=== PATIENT | male | born 1995 | race Caucasian/White ===

== ENCOUNTER 2016-11-19 23:47 | Emergency (ER) | payer OTHER ==
[~2016-11-19] VITALS: Ht 180.3 cm; Wt 72.6 kg
[2016-11-20] MEDS ORDERED: IBUPROFEN600 MG ORAL (00:33)
[2016-11-20] MEDS ORDERED: PROMETH-CODEIN 65 ML PO (00:33)
[2016-11-20] MEDS ORDERED: AMOXICILLIN500 MG ORAL (00:33)
[2016-11-20 00:45] VITALS: BP 121/71
--- NOTE | 2016-11-20 02:12 | Emergency Room Report ---
History of Present Illness General Chief Complaint: Sore Throat Source: Patient Present Illness HPI 21YOM [employer] patient with 2 days sinus congestion, rhinorrhea, sore throat, cough Denies fever/chills, earache, chest pain, SOB, sick contacts, other medical problems Self medicating with Nyquill with mild improvement Allergies: Coded Allergies: No Known Allergies (Unverified , 11/20/16) Patient History Past Medical History: none Past Surgical History: none Pertinent Family History: none Social History: Denies: alcohol use, drug use, smoking Immunizations: UTD Reviewed Nursing Documentation: PMH: Agreed, PSxH: Agreed Nursing Documentation-PMH Past Medical History: No Stated History Review of Systems All Other Systems: negative except mentioned in HPI Physical Exam Vital Signs Date Time Temp Pulse Resp B/P Pulse Ox O2 Delivery O2 Flow Rate FiO2 11/20/16 00:04 97.9 82 16 144/76 98 Room Air Sp02 EP Interpretation: reviewed, normal General Appearance: normal inspection, well appearing, no apparent distress, alert, GCS 15, non-toxic Head: normocephalic, atraumatic Eyes: bilateral eye EOMI, bilateral eye PERRL ENT: normal ENT inspection, hearing grossly normal, normal voice, other - Uvula edematous, oropharynx erythematous Neck: normal inspection, full range of motion, supple, no bony tend Respiratory: normal inspection, lungs clear, normal breath sounds, no respiratory distress, no retraction, no wheezing Cardiovascular #1: regular rate, rhythm, no edema Gastrointestinal: normal inspection, normal bowel sounds, non tender, soft, no guarding, no hernia Genitourinary: no CVA tenderness Musculoskeletal: normal inspection, back normal, normal range of motion, Reese' s Sign negative Neurologic: normal inspection, alert, oriented x3, responsive, public works inspector III-XII nml as tested, motor strength/tone normal, speech normal Psychiatric: normal inspection, judgement/insight normal, mood/affect normal Skin: normal inspection, normal color, no rash Medical Decision Making Diagnostic Impression: Primary Impression: Sore throat ER Course +uvula edematous, oropharynx erythematous VSS. Afebrile Will tx with Abx given above findings Rx Supportive care PMD followup as needed Last Vital Signs Date Time Temp Pulse Resp B/P Pulse Ox O2 Delivery O2 Flow Rate FiO2 11/20/16 00:45 97.9 74 16 121/71 98 Room Air Status: improved Disposition: HOME, SELF-CARE Condition: Improved Scripts Promethazine HCl/Codeine (Prometh-Codein 6.25-10 mg/5 ml) 5 Ml Syrup 5 ML PO TID for 7 Days, #120 ML Prov: BRAULIO VELA M.D. 11/20/16 Ibuprofen* (MOTRIN*) 600 Mg Tablet 600 MG ORAL THREE TIMES A DAY for sore throat for 7 Days, #30 TAB 0 Refills Prov: BRAULIO VELA M.D. 11/20/16 Amoxicillin* (AMOXIL*) 500 Mg Capsule 500 MG ORAL THREE TIMES A DAY for 7 Days, #21 CAP Prov: BRAULIO VELA M.D. 11/20/16 Referrals: NOT CHOSEN [facility]/,REFERRING (PCP) Patient Instructions: Sore Throat BRAULIO VELA M.D. Nov 20, 2016 02:12
== END 2016-11-20 00:45 | disposition home or self-care (01) ==
LOC: EMR 11-20 00:24
DX: R07.0 Pain in throat (principal)
CPT/HCPCS: 99284

== ENCOUNTER 2016-12-30 20:16 | Emergency (ER) | payer OTHER ==
[~2016-12-30] VITALS: Ht 180.3 cm; Wt 72.6 kg
[~2016-12-30 20:16] MED LIST: AMOXICILLIN500 MG ORAL; IBUPROFEN600 MG ORAL; PROMETH-CODEIN 65 ML PO
[2016-12-30] MEDS ORDERED: NKM (20:29)
[2016-12-30 20:36] VITALS: BP 134/81
[2016-12-30] MEDS ORDERED: ALBUTEROL SULF8.5 GM INH (20:58)
[2016-12-30] MEDS ORDERED: PROMETHAZINE-C118 M1 ORAL (20:58)
[2016-12-30 21:12] VITALS: BP 134/81
--- NOTE | 2016-12-30 22:11 | Emergency Room Report ---
History of Present Illness General Chief Complaint: Upper Respiratory Illness Source: Patient Present Illness HPI 21-year-old male presents to ED for evaluation. States he's been feeling cough and congestive symptoms for the last 3 days. Has a sore throat. Pain is an 8 at 10, burning, nonradiating. Notes runny nose with productive cough. Denies fevers or chills. Denies sick contacts or recent travel. Patient is to smoking one pack daily. No other aggravating or relieving factors. Denies any other associated symptoms Allergies: Coded Allergies: No Known Allergies (Unverified , 11/20/16) Patient History Pertinent Family History: none Social History: Denies: smoking, alcohol use, drug use Immunizations: UTD Reviewed Nursing Documentation: PMH: Agreed, PSxH: Agreed Nursing Documentation-PMH Past Medical History: No Stated History Review of Systems All Other Systems: negative except mentioned in HPI Physical Exam Vital Signs Date Time Temp Pulse Resp B/P (MAP) Pulse Ox O2 Delivery O2 Flow Rate FiO2 12/30/16 20:24 98.1 79 16 134/81 99 Room Air Sp02 EP Interpretation: reviewed, normal General Appearance: no apparent distress, alert, GCS 15, non-toxic Head: normocephalic, atraumatic Eyes: bilateral eye normal inspection, bilateral eye PERRL ENT: hearing grossly normal, normal pharynx, no angioedema, normal voice Neck: full range of motion, supple/symm/no masses Respiratory: chest non-tender, lungs clear, normal breath sounds, speaking full sentences Cardiovascular #1: regular rate, rhythm, no edema Cardiovascular #2: 2+ carotid (R), 2+ carotid (L), 2+ radial (R), 2+ radial (L) , 2+ dorsalis pedis (R), 2+ dorsalis pedis (L) Gastrointestinal: normal bowel sounds, non tender, soft, non-distended, no guarding, no rebound Rectal: deferred Genitourinary: normal inspection, no CVA tenderness Musculoskeletal: back normal, gait/station normal, normal range of motion, non- tender Neurologic: alert, oriented x3, responsive, motor strength/tone normal, sensory intact, speech normal Psychiatric: judgement/insight normal, memory normal, mood/affect normal, no suicidal/homicidal ideation Reflexes: 3+ bicep (R), 3+ bicep (L), 3+ tricep (R), 3+ tricep (L), 3+ knee (R) , 3+ knee (L) Skin: normal color, no rash, warm/dry, well hydrated Lymphatic: no adenopathy Medical Decision Making Diagnostic Impression: Primary Impression: Bronchitis ER Course Hospital Course 21-year-old male presents to ED complaining of cough, sore throat and runny nose Differential diagnoses include: URI, pharyngitis, otitis media, asthma Clinical course Patient placed on stretcher. After initial history, physical exam reveals a young male in no acute distress. Bilateral TM unremarkable. No pharyngeal erythema. No tonsillar exudates. No lymphadenopathy. lungs clear. abdomen soft. Clinical findings consistent with bronchitis. smoking cessation discussed Diagnosis - bronchitis Stable and discharged home with Rx albuterol, cough syrup. Instructed to followup with PMD. Return to ED if symptoms recur or worsen Last Vital Signs Date Time Temp Pulse Resp B/P (MAP) Pulse Ox O2 Delivery O2 Flow Rate FiO2 12/30/16 21:12 98.1 79 16 134/81 99 Room Air Status: improved Disposition: HOME, SELF-CARE Condition: Stable Scripts Albuterol Sulfate* (ALBUTEROL SULFATE MDI*) 8.5 Gm Hfa.aer.ad 2 PUFF INH Q4H Y for cough/wheezing, #1 EA 0 Refills Prov: DAMIAN DORMAN M.D. 12/30/16 Codeine/Promethazine Hcl* (PROMETHAZINE-CODEINE SYRUP*) 118 Ml Syrup 5 ML ORAL Q4H Y for For Cough, #118 ML 0 Refills Prov: DAMIAN DORMAN M.D. 12/30/16 Referrals: [facility],REFERRING (PCP) Patient Instructions: Acute Bronchitis, [id number]-[id number] DAMIAN DORMAN M.D. Dec 30, 2016 22:11
== END 2016-12-30 21:12 | disposition home or self-care (01) ==
LOC: EMR 21:05
DX: J20.9 Acute bronchitis, unspecified (principal); F17.210 Nicotine dependence, cigarettes, uncomplicated
CPT/HCPCS: 99284

== ENCOUNTER 2017-05-05 22:16 | Emergency (ER) | payer OTHER ==
[~2017-05-05] VITALS: Ht 180.3 cm; Wt 74.8 kg
[~2017-05-05 22:16] MED LIST changes: +ALBUTEROL SULF8.5 GM INH; +NKM; +PROMETHAZINE-C118 M1 ORAL
[2017-05-05 22:40] VITALS: BP 136/85
[2017-05-05] MEDS ORDERED: NEXAFED30 MG ORAL (22:54)
[2017-05-05] MEDS ORDERED: GUAIFENESIN400 MG PO (22:54)
--- NOTE | 2017-05-05 22:54 | Emergency Room Report ---
History of Present Illness General Chief Complaint: Flu Like Symptoms Source: Patient Present Illness HPI Is a 21-year-old male with no past medical history. He presents with cough and congestion. This prevented from sleeping. No fever or chills. Ongoing for last 3 days. Has runny nose also. No nausea vomiting or diarrhea. He said that his grandmother gave him Phenergan with codeine and it out. He is asking for prescription. Allergies: Coded Allergies: No Known Allergies (Unverified , 05/05/17) Patient History Past Medical History: see triage record, old chart reviewed Past Surgical History: none Pertinent Family History: none Social History: Denies: smoking Immunizations: other Reviewed Nursing Documentation: PMH: Agreed, PSxH: Agreed Nursing Documentation-PMH Past Medical History: No Stated History Review of Systems Eye: Denies: eye pain, blurred vision ENT: Reports: nose congestion, Denies: ear pain, throat swelling Respiratory: Reports: cough, Denies: shortness of breath Cardiovascular: Denies: chest pain, palpitations Gastrointestinal: Denies: abdominal pain, diarrhea, nausea, vomiting Musculoskeletal: Denies: back pain, joint pain Skin: Denies: rash Neurological: Denies: headache, numbness Endocrine: Denies: increased thirst, increased urine Hematologic/Lymphatic: Denies: easy bruising All Other Systems: negative except mentioned in HPI Physical Exam Vital Signs Date Time Temp Pulse Resp B/P (MAP) Pulse Ox O2 Delivery O2 Flow Rate FiO2 05/05/17 22:34 98.2 98 16 136/85 99 Room Air vitals normal Sp02 EP Interpretation: reviewed, normal General Appearance: well appearing, no apparent distress, alert Head: normocephalic, atraumatic Eyes: bilateral eye PERRL, bilateral eye EOMI ENT: hearing grossly normal, uvula midline - Elongated Neck: full range of motion, supple, no meningismus Respiratory: chest non-tender, lungs clear, normal breath sounds Cardiovascular #1: regular rate, rhythm, no murmur Gastrointestinal: normal bowel sounds, non tender, no mass, no organomegaly, no bruit, non-distended Musculoskeletal: back normal, gait/station normal, normal range of motion Psychiatric: mood/affect normal Skin: warm/dry Medical Decision Making Diagnostic Impression: Primary Impression: Viral upper respiratory infection ER Course This with a viral upper respiratory infection. No evidence of meningitis, sepsis, strep throat or pneumonia. Lungs are clear. Patient was asking for Phenergan with codeine prescription. On the [employer] system, he had 7 prescription for cough medicine with codeine since November. I will hold off on any more prescription. I suspect an addiction problem. Last Vital Signs Date Time Temp Pulse Resp B/P (MAP) Pulse Ox O2 Delivery O2 Flow Rate FiO2 05/05/17 22:40 98.3 98 16 136/85 99 Room Air Status: unchanged Disposition: HOME, SELF-CARE Condition: Stable Scripts Guaifenesin (GUAIFENESIN) 400 Mg Tablet 400 MG PO Q6HR, #30 TAB Prov: STEVIE QUINTANA M.D. 05/05/17 Pseudoephedrine Hcl* (NEXAFED*) 30 Mg Tablet 30 MG ORAL Q6H Y for congestion, #30 TAB Prov: STEVIE QUINTANA M.D. 05/05/17 Additional Instructions: Followup with your Dr. in 7 days. Salt water gargle. Return if symptom worsen. STEVIE QUINTANA M.D. May 05, 2017 22:54
[2017-05-05 23:00] VITALS: BP 136/85
== END 2017-05-05 23:00 | disposition home or self-care (01) ==
LOC: EMR 22:50
DX: J06.9 Acute upper respiratory infection, unspecified (principal); B34.9 Viral infection, unspecified
CPT/HCPCS: 99284

== ENCOUNTER 2017-05-20 14:53 | Emergency (ER) | payer OTHER ==
[~2017-05-20] VITALS: Ht 180.3 cm; Wt 74.8 kg
[~2017-05-20 14:53] MED LIST changes: +GUAIFENESIN400 MG PO; +NEXAFED30 MG ORAL
[2017-05-20] MEDS ORDERED: NKM (15:09)
--- NOTE | 2017-05-20 15:24 | Emergency Room Report ---
History of Present Illness General Chief Complaint: Upper Respiratory Illness Source: Patient Present Illness HPI 21 yo male patient presents to ER complaining of sore throat and cough x6 days. Patient reports cough is dry. Patient also complains of congestion and Patient reports taking DayQuil and NyQuil with mild relief of symptoms. Patient denies fever, chest pain, SOB. Patient reports sick contacts. Patient requesting codeine cough syrup, states that works well for him. Allergies: Coded Allergies: No Known Allergies (Unverified , 05/05/17) Patient History Past Medical History: see triage record Past Surgical History: none Pertinent Family History: none Immunizations: UTD Reviewed Nursing Documentation: PMH: Agreed, PSxH: Agreed Nursing Documentation-PMH Past Medical History: No Stated History Review of Systems All Other Systems: negative except mentioned in HPI Physical Exam Vital Signs Date Time Temp Pulse Resp B/P (MAP) Pulse Ox O2 Delivery O2 Flow Rate FiO2 05/20/17 15:05 98.2 98 16 130/84 97 Room Air Sp02 EP Interpretation: reviewed, normal General Appearance: no apparent distress, alert, GCS 15, non-toxic Head: normocephalic, atraumatic Eyes: bilateral eye normal inspection, bilateral eye PERRL ENT: hearing grossly normal, normal pharynx, no angioedema, normal voice, TMs + canals normal, uvula midline, moist mucus membranes, pharyngeal erythema Neck: full range of motion, supple/symm/no masses Respiratory: chest non-tender, lungs clear, normal breath sounds, speaking full sentences Cardiovascular #1: regular rate, rhythm, no edema Musculoskeletal: back normal, gait/station normal, normal range of motion, non- tender Neurologic: alert, oriented x3, responsive, motor strength/tone normal, sensory intact, speech normal Psychiatric: mood/affect normal Skin: normal color, no rash, warm/dry, well hydrated Lymphatic: no adenopathy, adenopathy - tonsilllar Medical Decision Making PA Attestation Dr. Guzmán is my supervising Physician whom patient management has been discussed with. Diagnostic Impression: Primary Impression: Upper respiratory infection ER Course Pt presents to ED c/o flu-like symptoms. DDX considered but are not limited to influenza, viral URI, rhinitis, sinusitis , otitis media. VITAL SIGNS are WNL, patient is afebrile. ORDERS: none required at this time, diagnosis is clinical ED INTERVENTIONS: none required at this time DISCHARGE: At this time pt is stable for d/c to home. Patient is resting comfortably in no acute distress, nontoxic appearing. -Rx given for Motrin/Ibuprofen for fever/pain. -Rx given for Promethazine-DM syrup for cough sx. -Rx provided for Guaifenesin. Patient to take medications as instructed Will provide with patient care instructions and any necessary prescriptions. Patient understands and agrees to treatment plan. Care plan and follow-up instructions provided. Patient instructed to follow-up with primary care provider in 3 - 5 days for further treatment. Patient questions asked and answered. ER precautions given. Patient instructed to return to ER immediately for any new or worsening of symptoms including but not limited to increasing SOB, persistent fever. Last Vital Signs Date Time Temp Pulse Resp B/P (MAP) Pulse Ox O2 Delivery O2 Flow Rate FiO2 05/20/17 15:05 98.2 98 16 130/84 97 Room Air Disposition: HOME, SELF-CARE Condition: Stable Scripts Guaifenesin (Mucus Relief) 600 Mg Tab.er.12h 600 MG PO DAILY for 7 Days, #7 TAB Prov: Faheem Garcia 05/20/17 Ibuprofen* (MOTRIN*) 600 Mg Tablet 600 MG ORAL Q8H Y for For Pain, #30 TAB 0 Refills Prov: Faheem Garcia 05/20/17 D-Methorphan Hb/Prometh Hcl* (PROMETHAZINE-DM SYRUP*) 118 Ml Syrup 5 ML ORAL Q6H Y for For Cough for 7 Days, #118 ML 0 Refills Prov: Faheem Garcia 05/20/17 Patient Instructions: Upper Respiratory Infection, Adult Additional Instructions: Followup with primary care provider in 3 -5 days. Take medications as directed. Patient questions asked and answered. ER precautions given, patient instructed to return to ER immediately for any new or worsening of symptoms. Faheem Garcia May 20, 2017 15:24
[2017-05-20] MEDS ORDERED: MUCUS RELIEF600 M1 PO (15:38)
[2017-05-20] MEDS ORDERED: PROMETHAZINE-D118 ML ORAL (15:38)
[2017-05-20] MEDS ORDERED: IBUPROFEN600 MG ORAL (15:38)
[2017-05-20 15:47] VITALS: BP 110/72
== END 2017-05-20 15:47 | disposition home or self-care (01) ==
LOC: EMR 15:30
DX: J06.9 Acute upper respiratory infection, unspecified (principal)
CPT/HCPCS: 99283

== ENCOUNTER 2017-09-18 02:04 | Emergency (ER) | payer OTHER ==
[~2017-09-18] VITALS: Ht 180.3 cm; Wt 74.8 kg
[~2017-09-18 02:04] MED LIST changes: +MUCUS RELIEF600 M1 PO; +PROMETHAZINE-D118 ML ORAL
[2017-09-18 02:28] VITALS: BP 127/80
[2017-09-18] MEDS ORDERED: ALBUTEROL SULF8.5 GM INH (02:46)
--- NOTE | 2017-09-18 02:46 | Emergency Room Report ---
History of Present Illness General Chief Complaint: Flu Like Symptoms Source: Patient Present Illness HPI This 22-year-old male who presents with chief complaint of coughing congestion for last few days. He said has a hard time sleeping. No fever chills but no nausea no vomiting. He's been here frequently for the same thing. He wants medicine. Allergies: Coded Allergies: No Known Allergies (Unverified , 05/05/17) Patient History Past Medical History: see triage record, old chart reviewed Past Surgical History: none Pertinent Family History: none Social History: Denies: smoking Immunizations: other Reviewed Nursing Documentation: PMH: Agreed; PSxH: Agreed Nursing Documentation-PMH Past Medical History: No History, Except For Review of Systems Eye: Denies: eye pain, blurred vision ENT: Denies: ear pain, nose congestion, throat swelling Respiratory: Reports: cough; Denies: shortness of breath Cardiovascular: Denies: chest pain, palpitations Gastrointestinal: Denies: abdominal pain, diarrhea, nausea, vomiting Musculoskeletal: Denies: back pain, joint pain Skin: Denies: rash Neurological: Denies: headache, numbness Endocrine: Denies: increased thirst, increased urine Hematologic/Lymphatic: Denies: easy bruising All Other Systems: negative except mentioned in HPI Physical Exam Vital Signs Date Time Temp Pulse Resp B/P (MAP) Pulse Ox O2 Delivery O2 Flow Rate FiO2 09/18/17 02:20 97.6 93 18 127/80 97 Room Air 97.5 vitals normal Sp02 EP Interpretation: reviewed, normal General Appearance: well appearing, no apparent distress, alert Head: normocephalic, atraumatic Eyes: bilateral eye PERRL, bilateral eye EOMI ENT: hearing grossly normal, normal pharynx Neck: full range of motion, supple, no meningismus Respiratory: chest non-tender, lungs clear, normal breath sounds Cardiovascular #1: regular rate, rhythm, no murmur Gastrointestinal: normal bowel sounds, non tender, no mass, no organomegaly, no bruit, non-distended Musculoskeletal: back normal, gait/station normal, normal range of motion Psychiatric: mood/affect normal Skin: warm/dry Medical Decision Making Diagnostic Impression: Primary Impression: Cough Additional Impression: Drug-seeking behavior ER Course patient presents with cough. He's been here numerous times for same symptoms and asking for in with codeine. On the [employer] system he also had multiple prescription for further with codeine from multiple different doctors. I suspect opioid dependency and abuse with cough syrup. We'll discharge home. Last Vital Signs Date Time Temp Pulse Resp B/P (MAP) Pulse Ox O2 Delivery O2 Flow Rate FiO2 09/18/17 02:28 93 18 Room Air 09/18/17 02:28 97.5 127/80 97 97.5 Status: unchanged Disposition: HOME, SELF-CARE Condition: Stable Scripts Albuterol Sulfate* (ALBUTEROL SULFATE MDI*) 8.5 Gm Hfa.aer.ad 2 PUFF INH Q4H PRN for cough/wheezing, #1 EA 0 Refills Prov: STEVIE QUINTANA M.D. 09/18/17 Additional Instructions: Follow-up your doctor in 7 days. Stop going to different ERs for cough medicine with codeine. Return if symptom worsen. STEVIE QUINTANA M.D. Sep 18, 2017 02:46
== END 2017-09-18 02:49 | disposition home or self-care (01) ==
LOC: EMR 02:48
DX: R05 Cough (principal); Z76.5 Malingerer [conscious simulation]
CPT/HCPCS: 99283

== ENCOUNTER 2018-01-11 03:34 | Emergency (ER) | payer OTHER ==
[~2018-01-11] VITALS: Ht 180.3 cm; Wt 74.8 kg
[2018-01-11 03:55] VITALS: BP 136/78
--- NOTE | 2018-01-11 03:58 | Emergency Room Report ---
History of Present Illness General Chief Complaint: Upper Respiratory Illness Source: Patient Present Illness HPI Patient presents with complaints of runny nose cough and congestion ongoing for the past 2 days Denies any fevers denies any neck pain denies any photophobia Denies any chest pain Denies any vomiting denies any recent travel Patient reports that he has been taking NyQuil without significant improvement Allergies: Coded Allergies: No Known Allergies (Unverified , 05/05/17) Patient History Past Medical History: see triage record Pertinent Family History: none Reviewed Nursing Documentation: PMH: Agreed; PSxH: Agreed Nursing Documentation-PMH Past Medical History: No Stated History Review of Systems All Other Systems: negative except mentioned in HPI Physical Exam Vital Signs Date Time Temp Pulse Resp B/P (MAP) Pulse Ox O2 Delivery O2 Flow Rate FiO2 01/11/18 03:40 97.7 91 16 136/78 98 Room Air 97.7 Sp02 EP Interpretation: reviewed, normal General Appearance: well appearing, no apparent distress Head: normocephalic, atraumatic Eyes: bilateral eye PERRL, bilateral eye EOMI ENT: hearing grossly normal, normal pharynx, TMs + canals normal, uvula midline Neck: full range of motion, supple, no meningismus, no bony tend Respiratory: lungs clear, normal breath sounds, no rhonchi, no respiratory distress, no retraction, no accessory muscle use Cardiovascular #1: normal peripheral pulses, regular rate, rhythm, no edema, no gallop, no JVD, no murmur Gastrointestinal: normal bowel sounds, non tender, soft, no mass, no organomegaly, non-distended, no guarding, no hernia, no pulsatile mass, no rebound Genitourinary: no CVA tenderness Musculoskeletal: normal inspection Neurologic: oriented x3, responsive, course instructor III-XII nml as tested, motor strength/ tone normal, sensory intact Psychiatric: mood/affect normal Skin: normal color, no rash, warm/dry, palpation normal Lymphatic: normal inspection, no adenopathy Medical Decision Making Diagnostic Impression: Primary Impression: Upper respiratory infection ER Course Patient has a fairly benign medical evaluation Patient asking several times regarding his cough and different methods of improving this On review of cures patient has had multiple promethazine with codeine prescriptions filled The most recent was 2 weeks ago Patient did not mention anything regarding this I'm concerned about the patient's presentation and his request for medicine for cough Patient appears to be receiving medicine routinely from several different providers Attempt to notify cures is made And patient is also notified to follow up closely As it appears that he is receiving moderate amount of codeine Last Vital Signs Date Time Temp Pulse Resp B/P (MAP) Pulse Ox O2 Delivery O2 Flow Rate FiO2 01/11/18 03:40 97.7 91 16 136/78 98 Room Air 97.7 Status: unchanged Disposition: HOME, SELF-CARE Condition: Stable Referrals: [facility],REFERR[facility] (PCP) Patient Instructions: Upper Respiratory Infection, Adult Additional Instructions: Patient is provided with the discharge instructions notified to follow up with primary doctor in the next 2-3 days otherwise return to the er with any worsening symptoms. Please note that this report is being documented using [employer] technology. This can lead to erroneous entry secondary to incorrect interpretation by the dictating instrument. Tricia Beltran DO Jan 11, 2018 03:58
== END 2018-01-11 03:51 | disposition home or self-care (01) ==
LOC: EMR 03:45
DX: J06.9 Acute upper respiratory infection, unspecified (principal)
CPT/HCPCS: 99282